=== PATIENT | female | born 1955 | race Caucasian/White ===

== ENCOUNTER → 2018-03-10 | Outpatient (CLI) | payer BC | END | disposition home or self-care (01) | LOC: KCIC MRI 07:42 | DX: M48.02 Spinal stenosis, cervical region (principal); M50.323 Other cervical disc degeneration at C6-C7 level; M47.892 Other spondylosis, cervical region; M43.12 Spondylolisthesis, cervical region; M25.78 Osteophyte, vertebrae; R60.0 Localized edema | CPT/HCPCS: 72141 ==